=== PATIENT | male | born 1970 | race Two or more races ===

== ENCOUNTER 2018-01-09 17:03 | Emergency (ER) | payer OTHER ==
[~2018-01-09] VITALS: Ht 175.3 cm; Wt 82.6 kg
[2018-01-09 18:07] LABS: HEMATOCRIT 47.9 % (38.0-50.0); HEMOGLOBIN 16.9 G/DL (12.5-16.6); MCHC 35.3 G/DL (30.0-36.0); MCV 85.1 FL (86-99); PLATELET COUNT 285 K/uL (156-360); RBC DIS.WIDTH-CV 12.2 % (11.8-14.6); RBC DIS.WIDTH-SD 37.6 % (39-53); RED BLOOD COUNT 5.63 M/uL (4.00-5.50); WHITE BLOOD COUNT 10.4 K/uL (4.1-10.2)
[2018-01-09 18:19] LABS: ALBUMIN 4.5 g/dL (3.2-4.8)
[2018-01-09 18:20] LABS: CHLORIDE 93 mEq/L (99-109); POTASSIUM 4.3 mEq/L (3.7-5.4); SODIUM 132 mEq/L (136-147)
[2018-01-09 18:22] LABS: GLUCOSE 386 mg/dL (70-99); TOTAL PROTEIN 7.8 g/dL (6.4-8.3)
[2018-01-09 18:24] LABS: TOTAL BILIRUBIN 0.7 mg/dL (0.0-1.0)
[2018-01-09 18:25] LABS: ALKALINE PHOSPHATASE 142 IU/L (3-129)
[2018-01-09 18:26] LABS: GFR ESTIMATE (CALCULATED) > 59 mL/min/ (58.99-99999)
[2018-01-09 18:27] LABS: AST (GOT) 24 IU/L (2-34); UREA NITROGEN (BUN) 17 mg/dL (9-23)
[2018-01-09 18:28] LABS: ALT (GPT) 29 IU/L (3-49)
[2018-01-09 18:29] LABS: LIPASE 34 U/L (1.0-51.0)
[2018-01-09 18:50] LABS: APPEARANCE CLEAR ((CLEAR)); BILIRUBIN NEGATIVE; BLOOD NEGATIVE; COLOR YELLOW ((YELLOW)); GLUCOSE (STRIP) >=500; KETONES 80; LEUKOCYTES NEGATIVE; NITRITE NEGATIVE; PROTEIN (STRIP) 30; SPECIFIC GRAVITY 1.041 (1.000-1.030); UCUL ADDED? NO; UROBILINOGEN 0.2 MG/DL (0.2-1.0)
[2018-01-09 20:35] LABS: CARBON DIOXIDE (BICARBONATE) 32.6 MEQ/L (20-31)
[2018-01-09] MEDS ORDERED: ZOFRAN4 MG PO (21:31)
[2018-01-09 21:53] VITALS: BP 120/76
== END 2018-01-09 21:54 | disposition home or self-care (01) ==
LOC: EME 17:03
PROVIDERS: Physician Assistant
DX: E11.65 Type 2 diabetes mellitus with hyperglycemia (principal); R11.2 Nausea with vomiting, unspecified; R10.9 Unspecified abdominal pain; R63.4 Abnormal weight loss; Z68.26 Body mass index [BMI] 26.0-26.9, adult; Z79.84 Long term (current) use of oral hypoglycemic drugs
CPT/HCPCS: 80053; 81003; 82010; 82803; 82948; 83690; 85027; 99281; 99284; J7030